=== PATIENT | female | born 1945 | race Caucasian/White ===

== ENCOUNTER 2019-07-04 12:56 | Day surgery (SDC) | payer MEDICARE ==
[2019-07-02 11:47] VITALS: BMI 31.1
[~2019-07-04 12:56] MED LIST: DEXAMETHASONE SOD PHOSPHATE 10 MG/ML 1 ML VIAL IV ONE; HYDROmorphone 0.5 MG/0.5 ML SYRINGE IVP PRN; LIDOCAINE 1% 20 ML VIAL (10MG/ML) FOR IV START INTRADERMA PRN; ONDANSETRON 4 MG/2 ML VIAL IVP ONE; Pre Op ABX Message 1 EACH MISC MISCELLANE ONE
[2019-07-04 13:54] VITALS: TEMP 98.2
[2019-07-04] MEDS: LACTATED RINGERS 1,000 ML IV SCH ×2 (14:03→16:02)
[2019-07-04 14:06] LABS: Glucose,Whole Blood 104 mg/dL (75-99)
[2019-07-04] MEDS ORDERED: PROPOFOL 10 MG/ML 20 ML VIAL IV ONE (16:02)
[2019-07-04] MEDS ORDERED: MIDAZOLAM 2 MG/2 ML VIAL ONE (16:02)
[2019-07-04] MEDS ORDERED: LIDOCAINE 1% INJ 10MG/ML (20 ML MDV) ONE (16:02)
[2019-07-04] MEDS ORDERED: fentaNYL (PF) 50 MCG/ML 2 ML AMP ONE (16:02)
[2019-07-04] MEDS ORDERED: BUPIVACAINE (PF) 0.5% 30 ML VIAL SQ ONE (16:03)
[2019-07-04] MEDS ORDERED: LIDOCAINE 1% INJ 10MG/ML (20 ML MDV) SQ ONE (16:03)
[2019-07-04 17:52] VITALS: RESP 16
[2019-07-04 18:09] VITALS: BP 118/73; PULSE 72
--- NOTE | 2019-07-05 19:09 | FL ---
Fluoroscopy HISTORY: Debridement 14 seconds fluoroscopy time supplied to the referring clinician. 4 intraoperative C-arm images docum ent the procedure. See dictated report from orthopedic surgery.
--- NOTE | 2019-07-05 19:10 | XR ---
Limited finger HISTORY: Joint debridement 4 intraoperative C-arm images document the procedure
--- NOTE | 2019-07-10 19:34 | P.OP ---
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 Arthrotomy and debridement of left index finger distal interphalangeal (DIP) joint with resection of osteophytes 2. Excision of left index finger mucous cyst Anesthesia: MAC, local Surgeon: Mauro León Estimated Blood Loss (ml): 3 Pathology: none sent Condition: stable Disposition: same day Indications for Procedure: The patient is a 73-year-old female who was diagnosed with a left index finger mucous cyst. Treatment options were presented in the office, along with associated risks and benefits: the patient opted for surgical debridement and cyst excision. In preop, additional questions were addressed and the patient wished to proceed with surgery. Consent forms were signed. The surgical site was confirmed and marked. Description of Procedure: The patient was brought to the operative suite and positioned supine with the operative limb on a hand table. All bony prominences were well-padded. Anesthesia was administered uneventfully. A time-out was performed, confirming patient identifiers, the operative side, the site and procedure to be performed: all team members expressed agreement. Using aseptic technique, a digital block was administered. The operative extremity was then prepped and draped in standard, sterile fashion. A strip of the Esmarch was clamped at the base of the finger as a digital tourniquet. An H-shaped incision was marked over the dorsal aspect of the index finger DIP joint. The skin was sharply incised and full-thickness skin flaps were elevated. Dorsal veins were coagulated as needed with bipolar cautery. The cyst was identified on the dorsoradial corner of the DIP joint. This was circumferentially dissected free. This was traced down to its stalk off the dorsal joint capsule and was sharply excised. Dorsal osteophytes were present on both the proximal and distal aspects of the joint. The extensor tendon was gently elevated. A capsulotomy was performed. The large offending osteophyte at the radial corner of the middle phalanx head was resected with a rongeur. There was a similar, smaller osteophyte on the ulnar corner, which was also excised. There was a large spur immediately beneath the central aspect of the extensor tendon. The osteophyte was resected with a rongeur, taking care to protect the terminal insertion. A curette was used to smooth the bony surfaces along the dorsum of the joint. Adequate bony resection was confirmed visually, as well as with intraoperative fluoroscopy. The joint and wound were copiously irrigated with normal saline. The periphery of the terminal extensor insertion was repaired/reinforced with horizontal mattress sutures of 6-0 Prolene. The tourniquet was released after 43 minutes; good hemostasis was obtained with manual pressure and bipolar cautery. The incision was closed with interrupted 5-0 nylon sutures. A sterile dressing was applied, along with an Alumafoam splint to maintain the DIP joint in extension. All sponge, needle and instrument counts were correct at the end of the case. The patient tolerated the procedure well and was taken to recovery in stable condition.
== END 2019-07-04 18:19 | disposition home or self-care (01) ==
LOC: OR 12:56
PROVIDERS: ATTEND Orthopaedic Surgery
DX: M19.042 Primary osteoarthritis, left hand (principal); M71.342 Other bursal cyst, left hand; M18.12 Unilateral primary osteoarthritis of first carpometacarpal joint, left hand; E78.5 Hyperlipidemia, unspecified; H91.90 Unspecified hearing loss, unspecified ear; F32.9 Major depressive disorder, single episode, unspecified; E11.9 Type 2 diabetes mellitus without complications; I10 Essential (primary) hypertension; Z79.899 Other long term (current) drug therapy; Z79.84 Long term (current) use of oral hypoglycemic drugs; Z97.3 Presence of spectacles and contact lenses; Z88.1 Allergy status to other antibiotic agents; Z90.710 Acquired absence of both cervix and uterus; Z96.651 Presence of right artificial knee joint; Z98.42 Cataract extraction status, left eye; Z98.41 Cataract extraction status, right eye; Z98.890 Other specified postprocedural states
CPT/HCPCS: 73140; 26160; J2250; J1100; J2405; J0694; J2001; J3010; J2704